=== PATIENT | male | born 1995 | race Caucasian/White ===

== ENCOUNTER 2024-08-16 01:26 | Inpatient (IN) | payer SELFPAY ==
[~2024-08-16] VITALS: Ht 177.8 cm; Wt 70.3 kg
[2024-08-16] VITALS (8 sets, daily range): BP systolic 101–120; BP diastolic 57–76
[2024-08-16 02:09] LABS: BASO % 0.2 % (0.0-1.0); EOS % 0.2 % (1.0-4.0); HEMATOCRIT 40.4 % (42.0-52.0); MEAN CELL VOLUME 86.1 fl (80.0-94.0); MEAN CORPUSCULAR HGB 30.5 pg (27.0-31.0); MEAN CORPUSCULAR HGB CONC 35.4 g/dl (33.0-37.0); MEAN PLATELET VOLUME 9.7 fl (9.6-12.3); MONO % 5.9 % (3.0-9.0); NEUT # 14.9 10*3/uL (2.3-7.9); PLATELET COUNT AUTOMATED 289 10*3/uL (130-400); RED BLOOD COUNT 4.69 10*6/uL (4.50-5.90); RED CELL DISTRI WIDTH 11.5 % (0-14.5); WHITE BLOOD COUNT 17.8 10*3/uL (4.8-10.8)
[2024-08-16 02:28] LABS: BUN 9 mg/dl (9-23); CHLORIDE 105 mmol/L (98-107); POTASSIUM 3.6 mmol/L (3.4-5.1)
[2024-08-16] MEDS ORDERED: SODIUM CHLORIDE 0.9% 1,000 ML IV ONE ×3 (03:55→10:06)
[2024-08-16] MEDS ORDERED: Piperacillin Sodium/Tazobact 50 ML IV ONE (03:55)
[2024-08-16] MEDS ORDERED: Ondansetron Hydrochloride 4 MG/2 ML VIAL IV PRN (04:30)
[2024-08-16] MEDS ORDERED: BISACODYL 10 MG SUPP R PRN (04:30)
[2024-08-16] MEDS ORDERED: BISACODYL 5 MG TAB PO PRN (04:30)
[2024-08-16] MEDS ORDERED: Magnesium Hydroxide 30 ML UDC PO PRN (04:30)
[2024-08-16 06:32] LABS: ACT PARTIAL THROMBO TIME 30.5 SECONDS (20.0-32.1)
[2024-08-16 07:19] LABS: ALKALINE PHOSPHATASE 62 U/L (46-116); BUN 10 mg/dl (9-23); CHLORIDE 105 mmol/L (98-107); CHOLESTEROL 98 mg/dL (<200); FREE T4 1.19 ng/dl (0.89-1.76); LDL CHOLESTEROL 42 mg/dL (9-159); POTASSIUM 3.3 mmol/L (3.4-5.1); SGPT/ALT 14 U/L (5-49); TOTAL PROTEIN 6.9 gm/dL (6.0-8.0); TRIGLYCERIDES 70 mg/dl (<150)
[2024-08-16 08:07] LABS: BASO % 0.2 % (0.0-1.0); EOS # 0.1 10*3/uL (0.0-0.4); EOS % 0.4 % (1.0-4.0); HEMATOCRIT 37.5 % (42.0-52.0); MEAN CELL VOLUME 88.2 fl (80.0-94.0); MEAN CORPUSCULAR HGB 30.8 pg (27.0-31.0); MEAN CORPUSCULAR HGB CONC 34.9 g/dl (33.0-37.0); MEAN PLATELET VOLUME 9.5 fl (9.6-12.3); MONO # 1.3 10*3/uL (0.1-1.0); NEUT # 12.5 10*3/uL (2.3-7.9); NEUT % 78.1 % (47.0-73.0); PLATELET COUNT AUTOMATED 240 10*3/uL (130-400); RED BLOOD COUNT 4.25 10*6/uL (4.50-5.90); RED CELL DISTRI WIDTH 11.5 % (0-14.5); WHITE BLOOD COUNT 16.1 10*3/uL (4.8-10.8)
[2024-08-16] MEDS ORDERED: BUPivacaine 0.5% 30 ML IV ONE (08:49)
[2024-08-16] MEDS ORDERED: PERCOCET 5-3251 EACH PO (09:49)
[2024-08-16] MEDS ORDERED: METRONIDAZOLE500 M1 PO (09:49)
[2024-08-16] MEDS ORDERED: CIPROFLOXACIN500 M4 PO (09:49)
[2024-08-16] MEDS ORDERED: Piperacillin Sodium/Tazobact 50 ML IV SCH (10:00)
[2024-08-16] MEDS ORDERED: VITAMIN D325 MCG PO (10:35)
[2024-08-16] MEDS ORDERED: fentaNYL CITRATE 100 MCG/2 ML VIAL IV ONE (11:05)
[2024-08-16] MEDS ORDERED: PROPOFOL 200 MG/20 ML VIAL IV ONE (11:05)
[2024-08-16] MEDS ORDERED: Ketorolac Tromethamine 30 MG/ML VIAL IV ONE (11:05)
[2024-08-16] MEDS ORDERED: Midazolam Hydrochloride 2 MG/2 ML VIAL IV ONE (11:05)
[2024-08-16] MEDS ORDERED: dexmedeTOMIDine HCL 200 MCG/2 ML VIAL IV ONE (11:05)
[2024-08-16] MEDS ORDERED: Dexamethasone Sodium Phospha 4 MG/ML VIAL IV ONE (11:05)
[2024-08-16] MEDS ORDERED: ROCURONIUM BROMIDE 50 MG/5 ML SYRINGE IV ONE (11:05)
[2024-08-16] MEDS ORDERED: SEVOFLURANE 250 ML BOT INH ONE (11:05)
[2024-08-16] MEDS ORDERED: SUGAMMADEX SODIUM 200 MG/2 ML VIAL IV ONE (11:05)
[2024-08-16] MEDS ORDERED: Lidocaine Hydrochloride 2% 5 ML SDV IM ONE (11:05)
[2024-08-16] MEDS ORDERED: Ondansetron Hydrochloride 4 MG/2 ML VIAL IV ONE (11:05)
== END 2024-08-16 12:07 | disposition home or self-care (01) | DRG 399 ==
LOC: ED 01:26 → EDHOLD 04:09
PROVIDERS: Internal Medicine; Student in an Organized Health Care Education/Training Program; ADMIT Internal Medicine; ATTEND Internal Medicine
PROC: 0DTJ4ZZ Resection of Appendix, Percutaneous Endoscopic Approach (ICD-10-PCS; principal; 2024-08-16)
DX: K35.32 Acute appendicitis with perforation, localized peritonitis, and gangrene, without abscess (principal); R73.9 Hyperglycemia, unspecified; D72.829 Elevated white blood cell count, unspecified; Z82.49 Family history of ischemic heart disease and other diseases of the circulatory system; Z88.1 Allergy status to other antibiotic agents; Z83.3 Family history of diabetes mellitus; Z79.1 Long term (current) use of non-steroidal anti-inflammatories (NSAID); Z79.899 Other long term (current) drug therapy